=== PATIENT | female | born 1995 | race Caucasian/White ===

== ENCOUNTER 2016-10-17 11:42 | Inpatient (IN) | payer OTHER ==
[~2016-10-17] VITALS: Ht 162.6 cm; Wt 66.0 kg
[2016-10-17 12:42] VITALS: Ht 162.6 cm; Wt 66.0 kg
[2016-10-17] MEDS ORDERED: PEDICHW50 PO (12:42)
[2016-10-17] MEDS ORDERED: LACTATED RINGER'S 1000ML 1,000 ML IV PRN (12:53)
[2016-10-17] MEDS ORDERED: PENICILLIN G POTASSIUM IV 3 MU in DEXTROSE 5% 100ML 100 ML IV PRN (13:00)
[2016-10-17] MEDS ORDERED: EpHEDrine SULFATE INJ 50 MG/ML AMP ONE (13:30)
[2016-10-17] MEDS ORDERED: BUPIVACAINE 0.25% 30 ML VIAL ONE (13:30)
[2016-10-17] MEDS ORDERED: PENICILLIN G POTASSIUM IV 6 MU in DEXTROSE 5% 250ML 250 ML IV ONE (13:30)
[2016-10-17] MEDS ORDERED: FENTANYL 2MCG/ML ROPIV 1.25MG/ML 100ML BAG EPI ONE (13:31)
[2016-10-17] MEDS ORDERED: FENTANYL CITRATE INJ 50 MCG/1 ML 2 ML VIAL ONE (13:31)
[2016-10-17] MEDS: LACTATED RINGER'S 1000ML 1,000 ML IV SCH ×2 (13:36→17:15)
[2016-10-17 13:48] LABS: HEMATOCRIT 35.2 % (37-47); MEAN CELL VOLUME 87.6 fL (80-100); MEAN CORPUSCULAR HEMOGLOBIN 30.3 pg (25-34); MEAN CORPUSCULAR HGB CONC 34.7 g/dl (32-36); MEAN PLATELET VOLUME 12.3 fL (7.4-10.4); PLATELET COUNT 203 K/uL (130-400); RED BLOOD COUNT 4.02 M/uL (4.2-5.4); WHITE BLOOD COUNT 14.19 K/uL (4.8-10.8)
[2016-10-17] MEDS ORDERED: LACTATED RINGER'S 1000ML 500 ML IV PRN (14:32)
[2016-10-17] MEDS ORDERED: NALOXONE HCL INJ 1 MG in SODIUM CHLORIDE 0.9% 1000ML 1,000 ML IV PRN (14:32)
[2016-10-17] MEDS ORDERED: DiphenhydrAMINE HCL 50 MG/ML VIAL IV PRN (14:45)
[2016-10-17] MEDS ORDERED: NALOXONE HCL INJ 0.4 MG/1 ML VIAL/CARP IV PRN (14:45)
[2016-10-17] MEDS ORDERED: FENTANYL 2MCG/ML ROPIV 1.25MG/ML 100ML BAG EPI PRN (14:45)
[2016-10-17] MEDS ORDERED: EpHEDrine SULFATE INJ 50 MG/ML AMP IV PRN (14:45)
[2016-10-17] MEDS ORDERED: NALBUPHINE HCL INJ 10 MG/ML AMP IV PRN (14:45)
[2016-10-17] MEDS ORDERED: ONDANSETRON INJ 2 MG/ML 2 ML VIAL IV PRN (19:15)
[2016-10-17] MEDS ORDERED: OXYTOCIN 30 UNITS/500ML NSS IV ONE (19:44)
[2016-10-17] MEDS ORDERED: ACETAMINOPHEN/CODEINE 300/30MG TAB PO PRN (20:30)
[2016-10-17] MEDS ORDERED: OXYTOCIN 30 UNITS/500ML NSS IV PRN (20:30)
[2016-10-17] MEDS ORDERED: OXYCODONE/ACETAMINOPHEN 5-325 TAB PO PRN (20:30)
[2016-10-17] MEDS ORDERED: LANOLIN OINT EXT PRN ×2 (20:30)
[2016-10-17] MEDS ORDERED: HYDROCORTISONE ACETATE 25 MG SUPP PR PRN (20:30)
[2016-10-17] MEDS ORDERED: SUPERCREAM 0.870 % 15GM JAR EXT PRN (20:30)
[2016-10-17] MEDS ORDERED: ACETAMINOPHEN 325 MG TAB PO PRN (20:30)
[2016-10-17] MEDS ORDERED: BENZOCAINE 20% AER SPR 82.5 GM CAN EXT PRN (20:30)
--- NOTE | 2016-10-17 22:06 | DELIVERY SUMMARY ---
DATE OF OPERATION: 10/17/2016 The patient delivered a live infant female in occiput anterior presentation. There was nuchal cord which was easily reduced. was delivered. Cord was clamped and cut, and placed on mother's abdomen. Cord blood was obtained. Placenta spontaneously delivered. Inspection of the placenta showed grossly normal placenta with 3-vessel cord. 's weight is pending. Apgars 8 and 9. Estimated blood loss is 400 mL. Inspection of the perineum showed bilateral periurethral tears which were repaired with 2-0 Vicryl. There was good hemostasis at the end of the repair. There was a midline vaginal laceration which was also repaired with 2-0 Vicryl. Rectal exam post-repair showed good sphincter tone. No sutures were palpated in the rectum. All instruments were removed from the vagina and accounted for x2 including sponges and needles. Baby and mother are doing well in recovery. I attest to the content of the Intraoperative Record and any orders documented therein. Any exceptio ns are noted below.
[2016-10-17 22:45] VITALS: BP 122/71; PULSE 97; TEMP 37
[2016-10-18] MEDS: IBUPROFEN 600 MG TAB PO PRN ×5 (00:49→19:44)
[2016-10-18] MEDS: ACETAMINOPHEN/CODEINE 300/30MG TAB PO PRN ×2 (03:44→06:20)
[2016-10-18 03:55] VITALS: BP 115/73; PULSE 56; TEMP 36.7
[2016-10-18] MEDS ORDERED: DIPHTHERIA/TETANUS/PERTUSSIS 0.5 ML SYR/VIAL IM. ONE (08:00)
[2016-10-18 08:06] LABS: HEMATOCRIT 32.9 % (37-47)
[2016-10-18 09:00] VITALS: BP 105/67; PULSE 79; TEMP 36.6
--- NOTE | 2016-10-18 09:06 | OB/GYN Progress Note ---
SHIP KEEPER Progress Note Date of Service Oct 18, 2016. Subjective conversation w/ patient, physical exam Ambulation: ambulating normally Voiding: no voiding problems Passing Gas: Yes Feeding Type: Breast Feeding Objective Vital Signs Date Time Temp Pulse Resp B/P Pulse Ox O2 Delivery O2 Flow Rate FiO2 10/18/16 03:55 36.7 56 20 115/73 Room Air 10/17/16 22:45 Room Air 10/17/16 22:45 37.0 97 18 122/71 Room Air Physical Exam General Appearance: WELL-APPEARING, NO APPARENT DISTRESS Abdomen: non tender Fundus: Firm Extremities: normal range of motion, non-tender, normal inspection, no pedal edema, no calf tenderness Laboratory Results Last 24 Hours Test 10/17/16 13:25 10/18/16 07:53 White Blood Count 14.19 K/uL Red Blood Count 4.02 M/uL Hemoglobin 12.2 g/dL 11.2 g/dL Hematocrit 35.2 % 32.9 % Mean Corpuscular Volume 87.6 fL Mean Corpuscular Hemoglobin 30.3 pg Mean Corpuscular Hemoglobin Concent 34.7 g/dl RDW Standard Deviation 39.2 fL RDW Coefficient of Variation 12.3 % Platelet Count 203 K/uL Mean Platelet Volume 12.3 fL Assessment and Plan Post- Day Number: 1 Continue Routine Care: tent d/c in AM
[2016-10-18] MEDS: DOCUSATE SODIUM 100 MG CAP PO SCH ×2 (09:14→19:44)
[2016-10-18] MEDS: PRENATAL VITAMIN TAB PO SCH (09:14)
[2016-10-18] MEDS: OXYCODONE/ACETAMINOPHEN 5-325 TAB PO PRN ×3 (10:13→19:45)
--- NOTE | 2016-10-18 10:51 | Anesthesia Procedure Note ---
Anesthesia Epidural Removal Nt Date & Time Oct 18, 2016 at 10:51 Vital Signs Pain Intensity: 5.0 Vital Signs Past 12 Hours Date Time Temp Pulse Resp B/P Pulse Ox O2 Delivery O2 Flow Rate FiO2 10/18/16 03:55 36.7 56 20 115/73 Room Air Notes Mental Status: alert / awake / arousable, participated in evaluation Nausea / Vomiting: adequately controlled Pain: adequately controlled Airway Patency, RR, SpO2: stable & adequate BP & HR: stable & adequate Hydration State: stable & adequate Neuraxial Anesthesia: was administered, sensory block is resolving Anesthetic Complications: no major complications apparent, pt satisfied with anesthetic care Epidural: removed without complications, with tip intact
[2016-10-18 12:10] VITALS: BP 119/63; PULSE 92; TEMP 36.7
[2016-10-18 16:10] VITALS: BP 101/60; PULSE 69; TEMP 36.6
[2016-10-18 19:35] VITALS: BP 102/62; PULSE 77; TEMP 36.8; O2SAT 98
[2016-10-18] MEDS ORDERED: BISACODYL 5 MG TABEC PO SCH (20:00)
[2016-10-19] MEDS: IBUPROFEN 600 MG TAB PO PRN ×4 (00:09→13:05)
[2016-10-19 00:10] VITALS: BP 99/57; PULSE 84; TEMP 36.4; O2SAT 97
[2016-10-19] MEDS: OXYCODONE/ACETAMINOPHEN 5-325 TAB PO PRN ×5 (00:10→13:05)
[2016-10-19] MEDS ORDERED: BISACODYL 10 MG SUPP PR PRN (07:00)
[2016-10-19 07:03] LABS: HEMATOCRIT 29.7 % (37-47); MEAN CELL VOLUME 89.5 fL (80-100); MEAN CORPUSCULAR HEMOGLOBIN 29.8 pg (25-34); MEAN CORPUSCULAR HGB CONC 33.3 g/dl (32-36); MEAN PLATELET VOLUME 11.8 fL (7.4-10.4); PLATELET COUNT 173 K/uL (130-400); RED BLOOD COUNT 3.32 M/uL (4.2-5.4); WHITE BLOOD COUNT 6.63 K/uL (4.8-10.8)
[2016-10-19] MEDS ORDERED: MTR600X PO (08:46)
--- NOTE | 2016-10-19 08:48 | Discharge Instructions ---
Discharge Instructions Admission Reason for Admission: R/O Labor Discharge Discharge Diagnosis / Problem: term delivered Discharge Goals Goal(s): Routine recovery after delivery Activity Recommendations Activity Limitations: as noted below Lifting Limitations: no more than 10 pounds Exercise/Sports Limitations: until after follow-up appointment May Resume Sexual Activity: after follow-up appointment Shower/Bathe: no limitations Driving or Machine Use: resume 3 days after discharge . Instructions / Follow-Up Instructions / Follow-Up ACTIVITY RECOMMENDATIONS: * Gradual return to full activity over the next 2-3 weeks. * No lifting - nothing heavier than baby over the next 2-3 weeks. * Do not engage in vigorous exercise, sexual activity or sports until cleared by your physician. * Do not drive or operate any motorized equipment until cleared by your physician. * You may shower/bathe daily. BREAST CARE: If you are not breast feeding: * Wear a supportive bra 24 hours a day for one to two weeks. * Avoid stimulating your breasts and nipples as much as possible during the first few weeks after delivery. * When taking a shower, have the warm water hit your back, not breasts. * When your breasts feel full, apply ice packs. Usually three to four times a day helps ease the discomfort. * Take a mild pain medication (Tylenol/Motrin) when you are uncomfortable. If breast feeding: * Use breast milk to lubricate nipples. Lansinoh cream may be used for sore nipples. You do not need to remove cream prior to breast feeding. If using a different brand of cream, check the label for directions regarding removal of cream prior to nursing. * Wear a supportive bra. * If having problems with breasts or breast feeding, call a job service consultant or your health care provider. EPISIOTOMY CARE: After delivery, if you have an episiotomy (stitches), the following steps will ease discomfort and aid healing. * For the first 24 hours after delivery, place ice packs next to your episiotomy to help reduce swelling. * After the first 24 hour-period, sitz baths, either portable or in the tub, are suggested. A shower with a shower arm sprayed over the episiotomy may be comforting. * Mignon care should be done after each voiding and bowel movement. Squirt warm water from a plastic bottle over the perineum (region of the body between the anus and urinary opening) and pat dry. * Use Dermoplast to ease discomfort. Shake container. [place] directly over the episiotomy. * Place a Tucks on a clean sanitary pad next to your episiotomy. OVER THE COUNTER MEDICATION: * For discomfort or pain, you may use Acetaminophen (Tylenol), Ibuprofen (Advil ), or Naproxen (Aleve) following the package directions. * For constipation you may use Colace following the package directions. SPECIAL CARE INSTRUCTIONS: When you are discharged from the hospital, it is important for you to follow the instructions listed below: * During the first week at home, you should be able to care for yourself and your baby. In addition, the usual light household activities are encouraged. * Limit your activities to the way you feel. Do not try to clean the house or move furniture. Be sensible. * If you actively engage in sports and have done so up until the time of your delivery, you may resume these activities as soon as you feel able. This may take up to one month or even longer. Use good judgment. * Continue to take your vitamins for at least six weeks after the of your baby. * Your diet need not be limited unless you were on a special diet before your delivery. Breast-feeding mothers need around 2500 calories per day and at least 64-80 ounces of fluid per day (8 to 10 glasses). * You should eat foods from the four major food groups. Crash diets or fad diets are to be avoided. Eating lean meats, fresh fruits and vegetables, low-fat dairy products, high fiber foods and a regular exercise program, will help you get back to your pre- weight without putting your health at risk. * Constipation is sometimes a problem after delivery. Take a mild laxative as needed. If breast feeding, Milk of Magnesia is acceptable to use. You may use a suppository or Fleets enema if no episiotomy. * A daily shower or tub bath is suggested. Be sure to thoroughly and gently dry the perineum. * A bloody vaginal discharge will usually continue until around four weeks post . A small amount of bleeding may continue for as long as six weeks. Vaginal discharge changes from the bright red bleeding after delivery to pink then brownish and finally yellowish-pink before becoming white and disappearing. * Bleeding may increase with activity. Your first period may come in 4-8 weeks. If you are breast feeding, your period may be delayed even longer. * [place] (sex) can begin whenever both you and your partner feel comfortable and do not have any form of genital infection. It is recommended that you wait until after your return appointment and discuss with your physician. If you have questions, please talk to your health care practitioner. A condom should be used to prevent infection and . * Foreplay, gentle intercourse and lubrication is very important the first several times to prevent pain. A water-based lubricant such as K-Y jelly or Astroglide may be used. * Tampons may be used six weeks after delivery. * Douching should be avoided for 6 weeks after delivery. * If you have RH negative blood and your baby is RH positive, you will receive RHOGAM by injection prior to discharge. The nurse will give you a card to keep with you that has the date and place that you received RHOGAM after delivery. * During your care, you had a Rubella screen done to check for the presence of rubella antibodies in your blood. If your test was negative, you will receive a Rubella vaccine prior to discharge. This vaccine may cause a fever, soreness at the injection site and flu-like symptoms. If these symptoms persist, notify your health care practitioner. is not advised for three months after a Rubella vaccine. There is a higher chance of having a baby with defects if conceived within three months of getting the vaccine. * If you were discharged 24 hours from delivery or before 48 hours: Visiting nurses will come to your home 48 hours after discharge to assess you and your baby. The visiting nurse will meet with you while you are in the hospital to arrange a time and get directions to your home. * Verbalizes understanding of car seat law as reviewed with patient nursing. * Car Seat hand-out given and reviewed with patient by nursing. * Shaken baby information reviewed with patient by nursing. Call you doctor if: * Heavy bleeding (saturating several pads an hour) or passing clots the size of your fist. * A fever >101 degrees F (38.3 degrees C) on two occasions four hours apart and/or chills. * Unusual pain in the pelvic or vaginal areas. * "Baby Blues" lasting longer than two weeks. If you have any questions or concerns, call your health care practitioner at . FOLLOW-UP VISIT: * Please call the office at to schedule a 6 week examination. It is important you keep this appointment. * It is important for you to make arrangements for either yearly or twice yearly check-ups thereafter. Current Hospital Diet Patient's current hospital diet: Regular OB Diet Discharge Diet Recommended Diet: Regular OB Diet Fluid Restriction: None Pending Studies Studies pending at discharge: no Medical Emergencies . Who to Call and When: Medical Emergencies: If at any time you feel your situation is an emergency, please call 911 immediately. . Non-Emergent Contact Non-Emergency issues call your: Primary Care Provider . . "Provider Documentation" section prepared by Sanju Cotter. VTE Core Measure Inpt VTE Proph given/why not?: Treatment not indicated
--- NOTE | 2016-10-19 08:49 | OB/GYN Progress Note ---
BODY WIRER Progress Note Date of Service Oct 19, 2016. Subjective conversation w/ patient, physical exam Ambulation: ambulating normally Voiding: no voiding problems Passing Gas: Yes Diet Tolerance: Regular Diet Lochia: Small Feeding Type: Breast Feeding Objective Vital Signs Date Time Temp Pulse Resp B/P Pulse Ox O2 Delivery O2 Flow Rate FiO2 10/19/16 00:10 97 Room Air 10/19/16 00:10 36.4 84 16 99/57 97 Room Air 10/18/16 19:35 36.8 77 18 102/62 98 Room Air 10/18/16 16:10 36.6 69 20 101/60 Room Air 10/18/16 16:10 Room Air 10/18/16 12:10 36.7 92 18 119/63 Room Air 10/18/16 09:00 Room Air 10/18/16 09:00 36.6 79 20 105/67 Room Air Physical Exam General Appearance: WD/WN, NO APPARENT DISTRESS Fundus: Firm Extremities: non-tender, normal inspection, no pedal edema, no calf tenderness Laboratory Results Last 24 Hours Test 10/19/16 06:35 White Blood Count 6.63 K/uL Red Blood Count 3.32 M/uL Hemoglobin 9.9 g/dL Hematocrit 29.7 % Mean Corpuscular Volume 89.5 fL Mean Corpuscular Hemoglobin 29.8 pg Mean Corpuscular Hemoglobin Concent 33.3 g/dl RDW Standard Deviation 41.3 fL RDW Coefficient of Variation 12.7 % Platelet Count 173 K/uL Mean Platelet Volume 11.8 fL Assessment and Plan Post- Day Number: 2 Continue Routine Care: discharged
[2016-10-19] MEDS: PRENATAL VITAMIN TAB PO SCH (08:51)
[2016-10-19] MEDS: FERROUS SULFATE 325 MG TAB PO SCH (08:51)
[2016-10-19] MEDS: DOCUSATE SODIUM 100 MG CAP PO SCH (08:51)
[2016-10-19 08:55] VITALS: BP 114/75; PULSE 100; TEMP 36.8
[2016-10-19] MEDS ORDERED: OXYC-57 PO (13:17)
[2016-10-19 14:20] VITALS: BP_DIAS 75; PULSE 100; TEMP 36.8
== END 2016-10-19 14:31 | disposition home or self-care (01) | DRG 775 ==
LOC: C.OBG 11:42 → C.OPB 11:42 → C.LD 12:55 → C.OPB 12:55 → C.LD 13:15 → C.OBG 22:44
PROVIDERS: ADMIT Obstetrics & Gynecology; ATTEND Obstetrics & Gynecology
PROC: 10E0XZZ Delivery of Products of Conception, External Approach (ICD-10-PCS; principal; 2016-10-17)
PROC: 0UQGXZZ Repair Vagina, External Approach (ICD-10-PCS; principal; 2016-10-17)
PROC: 0UQMXZZ Repair Vulva, External Approach (ICD-10-PCS; principal; 2016-10-17)
DX: O99.824 Streptococcus B carrier state complicating childbirth (principal); O69.81X0 Labor and delivery complicated by cord around neck, without compression, not applicable or unspecified; O71.82 Other specified trauma to perineum and vulva; Z37.0 Single live birth; Z3A.40 40 weeks gestation of pregnancy; O71.4 Obstetric high vaginal laceration alone

== ENCOUNTER 2016-10-23 18:02 | Emergency (ER) | payer OTHER ==
[~2016-10-23] VITALS: Ht 162.6 cm; Wt 63.6 kg
[~2016-10-23 18:02] MED LIST: MTR600X PO; OXYC-57 PO; PEDICHW50 PO
[2016-10-23 18:16] VITALS: TEMP 37.1; Ht 162.6 cm; Wt 63.6 kg
[2016-10-23] MEDS ORDERED: MoRPHine SULFATE 4 MG/ML 1 ML CARP\\VIAL IV STA (20:04)
[2016-10-23] MEDS ORDERED: ONDANSETRON INJ 2 MG/ML 2 ML VIAL IV STA (20:04)
--- NOTE | 2016-10-23 20:10 | EMERGENCY ROOM VISIT NOTE ---
History Report prepared by Kika: Cristi Hammonds Under the Supervision of: Dr. Cristi Arroyo M.D. First contact with patient: 19:53 Chief Complaint: PELVIC PAIN Stated Complaint: PAIN IN GROIN FROM STITCHES History of Present Illness The patient is a 21 year old female who presents to the Emergency Room with complaints of persistent pelvic pain beginning 6 days ago. She notes she went into labor and gave vaginally 6 days ago without any complications. This was her first , and she reports she is . The patient reports having pelvic pain near the stitches, and that her pain is worsened when going from lying down to sitting up. She is still experiencing about the same about of vaginal bleeding when she was discharged and has been noticing small clots. She adds that she has had chills, and some burning during urination. The patient denies having any fever, chest pain, or shortness of breath. She has been taking Ibuprofen since leaving the hospital, and no longer has any Percocet. She states she has been resting at home. Source of History: patient, spouse/significant other Onset: 6 days ago Position: other (pelvis) Quality: other (pelvic pain) Timing: other (persistent) Modifying Factors (Worsening): other (lying down to sitting up) Associated Symptoms: + chills, + urinary symptoms (burning during urination) , No SOB, No chest pain, No fevers Review of Systems See HPI for pertinent positives & negatives. A total of 10 systems reviewed and were otherwise negative. Past Medical & Surgical Medical Problems: (1) Chronic lower back pain (2) (3) ulcers Old medical records were reviewed. Nurse's notes were reviewed and I agree with. Recent vaginal delivery about 5 days ago. No previous Family History Heart disease Kidney disease Lung disease Social History Smoking Status: Never Smoker Alcohol Use: none Drug Use: none Housing Status: lives with friends Occupation Status: unemployed Current/Historical Medications Scheduled Pediatric Multiple Vitamin W/ (Flintstones Chewable), 1 TAB PO QAM Scheduled PRN Ibuprofen (Ibuprofen), 600 MG PO Q4H PRN for PAIN, DECKER, CRAMPING OR FEVER Oxycodone Immediate Rel Tab (Roxicodone Ir), 1 TAB PO Q6 PRN for Severe Pain Allergies Coded Allergies: No Known Allergies (Unverified , 10/23/16) Physical Exam Vital Signs Date Time Temp Pulse Resp B/P Pulse Ox O2 Delivery O2 Flow Rate FiO2 10/23/16 21:45 69 16 129/91 97 Room Air 10/23/16 21:17 61 18 126/93 99 Room Air 10/23/16 19:53 69 18 149/105 99 Room Air 10/23/16 18:16 37.1 91 16 144/93 94 Room Air Physical Exam General: Non ill appearing young female. Well developed well nourished in no acute distress, breathing comfortably on room air. Normal speech HEENT: Normal cephalic atraumatic. Pupils are equal round and reactive to light. Extraocular movements are intact. Oropharynx is pink with moist mucous membranes. No swelling of the mouth lips or tongue. Neck: Supple with a midline trachea. No meningeal signs or stiffness, no JVD or bruits. No Stridor. Chest: Clear to auscultation bilaterally. No wheezes or rhonchi. No increased work of breathing. Heart: regular rate and rhythm. Abdomen: Soft nontender, nondistended without rebound guarding or rigidity. Extremities: No cyanosis clubbing or edema. No calf tenderness or assymetry Spine/Back. Non tender to palpation. No CVA tenderness Skin: Good turgor without rashes. Neurologic exam: Cranial nerves two through 12 are intact. Motor and sensation are intact and symmetrical throughout. Pelvic (in the presence of a female nurse meat smoker): healing incision sutures; no redness or warmth or discharge; minimal vaginal bleeding; no fluctuance; mildly tender. Medical Decision & Procedures Laboratory Results 10/23/16 20:19 Red Blood Count 3.77, Mean Corpuscular Volume 89.7, Mean Corpuscular Hemoglobin 30.8, Mean Corpuscular Hemoglobin Concent 34.3, Mean Platelet Volume 10.6, Neutrophils (%) (Auto) 74.1, Lymphocytes (%) (Auto) 11.9, Monocytes (%) (Auto) 9.7, Eosinophils (%) (Auto) 3.8, Basophils (%) (Auto) 0.2, Neutrophils # (Auto) 4.68, Lymphocytes # (Auto) 0.75, Monocytes # (Auto) 0.61, Eosinophils # (Auto) 0.24, Basophils # (Auto) 0.01 10/23/16 20:19 Test 10/23/16 20:19 White Blood Count 6.31 K/uL (4.8-10.8) Red Blood Count 3.77 M/uL (4.2-5.4) Hemoglobin 11.6 g/dL (12.0-16.0) Hematocrit 33.8 % (37-47) Mean Corpuscular Volume 89.7 fL (80-100) Mean Corpuscular Hemoglobin 30.8 pg (25-34) Mean Corpuscular Hemoglobin Concent 34.3 g/dl (32-36) Platelet Count 284 K/uL (130-400) Mean Platelet Volume 10.6 fL (7.4-10.4) Neutrophils (%) (Auto) 74.1 % Lymphocytes (%) (Auto) 11.9 % Monocytes (%) (Auto) 9.7 % Eosinophils (%) (Auto) 3.8 % Basophils (%) (Auto) 0.2 % Neutrophils # (Auto) 4.68 K/uL (1.4-6.5) Lymphocytes # (Auto) 0.75 K/uL (1.2-3.4) Monocytes # (Auto) 0.61 K/uL (0.11-0.59) Eosinophils # (Auto) 0.24 K/uL (0-0.5) Basophils # (Auto) 0.01 K/uL (0-0.2) RDW Standard Deviation 40.5 fL (36.4-46.3) RDW Coefficient of Variation 12.5 % (11.5-14.5) Immature Granulocyte % (Auto) 0.3 % Immature Granulocyte # (Auto) 0.02 K/uL (0.00-0.02) Anion Gap 9.0 mmol/L (3-11) Est Creatinine Clear Calc Drug Dose 129.2 ml/min Estimated GFR () > 150.0 Estimated GFR (Non- 130.1 BUN/Creatinine Ratio 16.1 (10-20) Calcium Level 8.8 mg/dl (8.5-10.1) Laboratory studies as stated above per my review. Medications Administered Medications (Trade) Dose Ordered Sig/Munir Route Start Time Stop Time Status Last Admin Dose Admin Morphine Sulfate (MoRPHine SULFATE INJ) 4 mg NOW STAT IV 10/23/16 20:04 10/23/16 20:05 DC 10/23/16 20:27 4 MG Ondansetron HCl (Zofran Inj) 4 mg NOW STAT IV 10/23/16 20:04 10/23/16 20:05 DC 10/23/16 20:27 4 MG Oxycodone HCl (Roxicodone Immediate Rel 5MG Home Pack) 1 homepack UD ONCE PO 10/23/16 21:30 10/23/16 21:31 DC 10/23/16 21:45 1 HOMEPACK ED Course 1953: Past medical records reviewed. The patient was evaluated in room A2, and a complete history and physical examination were performed. 2003: Ordered Zofran Inj 4 mg IV, and Morphine Sulfate 4 mg IV. 2099: I reassessed the patient and she feels better. 2109: I spoke witih Dr. Mendenhall, OB-ARCHITECTURAL DESIGNER at [facility] about the patient's case. 2129: Ordered Oxycodone HCl 1 homepack PO. 2134: Upon reevaluation, the patient is doing well. I discussed the results and treatment plan with the patient. She verbalized agreement of the treatment plan. The patient was discharged home. Medical Decision Differentials include post op pain, infection, anemia, and electrolyte or metabolic abnormality. This patient comes in as described above. She's having some pain where she had some sutures placed after childbirth. She gave about 5 days ago .she is out of her codeine. She had no fever or trauma or abdominal pain. On exam, the sutures appear to be healing well and she has no redness or pus drainage or any suggest infection. She has no fluctuance. She has a small amount of vaginal bleeding residual. She has no white count on blood work. She has normal kidney function and electrolytes. She's not significantly anemic. She was given morphine 4 mg iv and zofran 4 mg iv and is feeling much better. i will give her O andxyir 5 mg to use one pill every 6 hours as needed. She was warned that it could make her drowsy do not take before drinking, driving, working. she is not breast-feeding. she is also use sitz baths. i did discuss case with the on-call supervisor metal hanging and she agrees with the plan. i encouraged the patient follow-up with the oil spraying machine operator doctor later this week or return to er if: increasing pain, worsening of symptoms, fever or chills, redness or warmth or drainage. She is happy with plan and discharged to home. Consults Time Called: 2104 Consulting Physician: Dr. Mendenhall, OB-ARCHITECTURAL DESIGNER, [facility] Returned Call: [address] Mendenhall, OB-ARCHITECTURAL DESIGNER at [facility] about the patient's case. Impression Primary Impression: Pelvic pain Additional Impression: healing post op stitches Scribe Attestation The scribe's documentation has been prepared under my direction and personally reviewed by me in its entirety. I confirm that the note above accurately reflects all work, treatment, procedures, and medical decision making performed by me. Departure Information Dispostion Home / Self-Care Prescriptions Oxycodone Immediate Rel Tab (ROXICODONE IR) 5 Mg Tab 1 TAB PO Q6 Y for Severe Pain, #14 TAB Prov: Cristi Arroyo M.D. 10/23/16 Referrals No Doctor, Assigned (PCP) Patient Instructions [facility] Additional Instructions Rest. Drink plenty of fluids. May use OxyIR 5 mg, one pill every 4-6 hours as needed OxyIR may make you drowsy do not take before drinking, driving, working Return if: increasing pain, redness or warmth, purulent drainage, fever, any new problems or concerns Follow-up with your TIE INSPECTOR doctor this week for recheck, return to ER sooner if symptoms worsen. Problem Qualifiers
[2016-10-23 20:35] LABS: BASO % 0.2 %; BASO ABS # 0.01 K/uL (0-0.2); COMPLETE YES; EOS % 3.8 %; HEMATOCRIT 33.8 % (37-47); IG% 0.3 %; LYMPH % 11.9 %; LYMPH ABS # 0.75 K/uL (1.2-3.4); MEAN CELL VOLUME 89.7 fL (80-100); MEAN CORPUSCULAR HEMOGLOBIN 30.8 pg (25-34); MEAN CORPUSCULAR HGB CONC 34.3 g/dl (32-36); MEAN PLATELET VOLUME 10.6 fL (7.4-10.4); MONO % 9.7 %; NEUT % 74.1 %; PLATELET COUNT 284 K/uL (130-400); RED BLOOD COUNT 3.77 M/uL (4.2-5.4); WHITE BLOOD COUNT 6.31 K/uL (4.8-10.8)
[2016-10-23 20:55] LABS: BLOOD UREA NITROGEN 10 mg/dl (7-18); BUN/CREATININE RATIO 16.1 (10-20); CALCIUM 8.8 mg/dl (8.5-10.1); CARBON DIOXIDE 25 mmol/L (21-32); CHLORIDE 108 mmol/L (98-107); CREATININE 0.59 mg/dl (0.60-1.20); GLUCOSE 77 mg/dl (70-99); POTASSIUM 3.7 mmol/L (3.5-5.1); SODIUM 142 mmol/L (136-145)
[2016-10-23] MEDS ORDERED: OXYC1TAB3 PO (21:19)
[2016-10-23] MEDS ORDERED: OXYCODONE IR HOME PACK PO ONE (21:30)
[2016-10-23 21:45] VITALS: BP 129/91; PULSE 69; O2SAT 97
== END 2016-10-23 21:50 | disposition home or self-care (01) ==
LOC: C.EDB 18:04 → C.EDA 21:50
DX: R10.2 Pelvic and perineal pain (principal); Z82.49 Family history of ischemic heart disease and other diseases of the circulatory system; Z84.1 Family history of disorders of kidney and ureter; Z83.6 Family history of other diseases of the respiratory system